=== PATIENT | female | born 1980 | race Caucasian/White ===

== ENCOUNTER 2022-03-09 18:11 | Emergency (ER) | payer SELFPAY ==
[~2022-03-09] VITALS: Ht 165.1 cm; Wt 60.0 kg
[2022-03-09] VITALS (8 sets, daily range): BP systolic 109–159; BP diastolic 59–102
[2022-03-09] MEDS ORDERED: LYRICA100 MG PO (18:20)
[2022-03-09] MEDS ORDERED: TRETINOIN10 MG PO (18:21)
[2022-03-09] MEDS ORDERED: BELBUCA150 MCG (18:21)
[2022-03-09] MEDS ORDERED: MAXALT10 MG PO (18:21)
[2022-03-09] MEDS ORDERED: SYNTHROID88 MCG PO (18:22)
[2022-03-09] MEDS ORDERED: METHOTREXATE S2.5 MG (18:22)
[2022-03-09] MEDS ORDERED: DULOXETINE HCL30 MG (18:22)
[2022-03-09] MEDS ORDERED: TRAZODONE50 MG PO (18:23)
[2022-03-09] MEDS ORDERED: ALPRAZOLAM0.5 MG PO (18:23)
[2022-03-09] MEDS ORDERED: AMPHETAMINE (18:24)
[2022-03-09] MEDS ORDERED: DEX (18:24)
[2022-03-09] MEDS ORDERED: FOLIC ACID1 MG PO (18:25)
[2022-03-09 19:06] LABS: BASO% 0.2 % (0-3); EOS% 1.1 % (0-8); HEMATOCRIT 42.9 % (37.0-47.0); IMMATURE GRANULOCYTES 0.5 % (0.0-5.0); LYMPH% 21.4 % (15-41); MEAN CELL VOLUME 89.9 fL CALC (80.0-100.0); MEAN CORPUSCULAR HGB 31.4 pG CALC (26.0-32.0); MONO% 8.6 % (2-13); NEUT# 8.38 thou/uL (2.00-7.15); NEUT% 68.2 % (42-76); RED BLOOD COUNT 4.77 mill/uL (4.20-5.60); RED CELL DISTRI WIDTH 12.4 % (11.5-15.5)
[2022-03-09 19:10] LABS: URINE BILIRUBIN - DIPSTICK NEGATIVE (NEGATIVE); URINE BLOOD DIPSTICK NEGATIVE (NEGATIVE); URINE COLOR YELLOW; URINE GLUCOSE - DIPSTICK NEGATIVE (NEGATIVE); URINE KETONE NEGATIVE (NEGATIVE); URINE LEUK ESTERASE NEGATIVE (NEGATIVE); URINE PH 5.5 (4.5-8.0); URINE PROTEIN - DIPSTICK NEGATIVE (NEG-TRACE); URINE SPECIFIC GRAVITY >=1.030; URINE UROBILINOGEN - DIPSTICK 0.2 E.U./dL (0.2)
[2022-03-09 19:16] LABS: URINE NITRITE - DIPSTICK NEGATIVE (Negative)
[2022-03-09 19:29] LABS: ALBUMIN 4.5 g/dL (3.2-5.0); ALKALINE PHOSPHATASE 70 u/l (38-126); ANION GAP 11 (6-22 (CALC)); BILIRUBIN, TOTAL 0.3 mg/dL (0.0-1.4); BUN 12 mg/dL (7-17); BUN/CREATININE RATIO 18 (12-20 (CALC)); CARBON DIOXIDE 25 mmol/l (22-30); CHLORIDE 106 mmol/l (95-108); CREATININE 0.7 mg/dL (0.5-1.0); GFR FOR AFR.AMER. > 60 ML/MIN (>=60 (CALC)); GFR OTHER RACES > 60 ML/MIN (>=60 (CALC)); LIPASE 84 u/l (23-300); POTASSIUM 3.8 mmol/l (3.5-5.1); SGOT/AST 48 u/l (14-36); SODIUM 138 mmol/l (137-146); TOTAL PROTEIN 7.4 g/dL (6.3-8.2)
[2022-03-09] MEDS ORDERED: ONDANSETRON4 MG PO (20:42)
[2022-03-09] MEDS ORDERED: PREVACID30 M3 PO (20:42)
== END 2022-03-09 21:10 | disposition home or self-care (01) | DRG 392 ==
LOC: ED 18:11
PROVIDERS: Family Medicine
DX: K29.70 Gastritis, unspecified, without bleeding (principal)
CPT/HCPCS: Q9967; S0164

== ENCOUNTER 2022-05-18 09:51 | Day surgery (SDC) | payer OTHER ==
[~2022-05-18] VITALS: Ht 162.6 cm; Wt 54.4 kg
[~2022-05-18 09:51] MED LIST: ALPRAZOLAM ER0.5 MG PO; ALPRAZOLAM0.5 MG PO; AMPHETAMINE PO; BAC OP; BELBUCA150 MCG; BUPROPION HCL150 MG PO; CIPROFLOXACN500 MG PO; CLINDAMYCIN EX; DEX PO; DULOXETINE HCL30 MG PO; FOLIC ACID1 M1; FOLIC ACID1 MG PO; HYDROXYCHLOR200 M1 PO; LYRICA100 MG PO; MAXALT10 MG PO; METHOTREXATE S2.5 MG PO; NEO OP; ONDANSETRON4 MG PO; OXYBUTYNIN CHLOR5 M2 PO; PREVACID30 M3 PO; SYNTHROID88 MCG PO; TAMSULOSIN HCL0.4 MG PO; TRAZODONE50 MG PO; TRETINOIN10 MG PO; [UNRECOGNIZED DRUG - OTHER] OP
[2022-05-18 11:41] VITALS: BP 114/78
== END 2022-05-18 11:45 | disposition home or self-care (01) | DRG 392 ==
LOC: ENDO 09:51 → ORM 12:30
PROVIDERS: ATTEND Surgery
PROC: 0DB98ZX Excision of Duodenum, Via Natural or Artificial Opening Endoscopic, Diagnostic (ICD-10-PCS; principal; 2022-05-18)
PROC: 0DB78ZX Excision of Stomach, Pylorus, Via Natural or Artificial Opening Endoscopic, Diagnostic (ICD-10-PCS; 2022-05-18)
PROC: 0DB58ZX Excision of Esophagus, Via Natural or Artificial Opening Endoscopic, Diagnostic (ICD-10-PCS; 2022-05-18)
PROC: 0DB48ZX Excision of Esophagogastric Junction, Via Natural or Artificial Opening Endoscopic, Diagnostic (ICD-10-PCS; 2022-05-18)
DX: K29.50 Unspecified chronic gastritis without bleeding (principal); M35.1 Other overlap syndromes; K20.90 Esophagitis, unspecified without bleeding; K29.80 Duodenitis without bleeding; K44.9 Diaphragmatic hernia without obstruction or gangrene; Z87.11 Personal history of peptic ulcer disease; E06.3 Autoimmune thyroiditis

== ENCOUNTER 2023-02-22 13:03 | Emergency (ER) | payer OTHER ==
[~2023-02-22] VITALS: Ht 162.6 cm; Wt 52.4 kg
[2023-02-22] VITALS (8 sets, daily range): BP systolic 80–157; BP diastolic 54–101
[~2023-02-22 13:03] MED LIST changes: +OMEPRAZOLE20 MG PO; +PROTONIX40 M2 PO
[2023-02-22 13:56] LABS: BASO% 0.1 % (0-3); EOS% 1.1 % (0-8); HEMATOCRIT 41.1 % (37.0-47.0); HEMOGLOBIN 13.4 g/dl (12.0-16.0); IMMATURE GRANULOCYTES 0.1 % (0.0-5.0); LYMPH% 19.9 % (15-41); MEAN CELL VOLUME 92.6 fL CALC (80.0-100.0); MEAN CORPUSCULAR HGB 30.2 pG CALC (26.0-32.0); MEAN CORPUSCULAR HGB CONC 32.6 g/dL CAL (32.0-36.0); MONO% 9.9 % (2-13); NEUT# 6.25 thou/uL (2.00-7.15); NEUT% 68.9 % (42-76); RED BLOOD COUNT 4.44 mill/uL (4.20-5.60); RED CELL DISTRI WIDTH 12.8 % (11.5-15.5)
[2023-02-22 14:14] LABS: INTERNATIONAL NORMALIZED RATIO 1.1 RATIO (0.7-1.3); PROTHROMBIN TIME 10.2 SECONDS (9.0-12.5)
[2023-02-22 14:18] LABS: ALBUMIN 4.3 g/dL (3.2-5.0); ALKALINE PHOSPHATASE 54 u/l (38-126); ANION GAP 15 (6-22 (CALC)); BUN 14 mg/dL (7-17); BUN/CREATININE RATIO 17 (12-20 (CALC)); CALCULATED LDLCHOLESTEROL 70 mg/dL (62-129 (CALC)); CARBON DIOXIDE 22 mmol/l (22-30); CHLORIDE 105 mmol/l (95-108); CHOLESTEROL HDL RATIO 2.9 (<4.4 (CALC)); CREATININE 0.8 mg/dL (0.5-1.0); GFR FOR AFR.AMER. > 60 ML/MIN (>=60 (CALC)); GFR OTHER RACES > 60 ML/MIN (>=60 (CALC)); HDL CHOLESTEROL 51 mg/dL (39.0-59.0); POTASSIUM 3.9 mmol/l (3.5-5.1); SGOT/AST 36 u/l (14-36); SODIUM 138 mmol/l (137-146); TOTAL CHOLESTEROL 148 mg/dl (0-199); TOTAL PROTEIN 6.9 g/dL (6.3-8.2); TOTAL TRIGLYCERIDES 135 mg/dl (0-149); VLDL CHOLESTROL 27 mg/dl (1-41 (CALC))
[2023-02-22 14:36] LABS: BILIRUBIN, TOTAL 0.5 mg/dL (0.02-1.3)
[2023-02-22 15:19] LABS: URINE BILIRUBIN - DIPSTICK Negative (NEGATIVE); URINE BLOOD DIPSTICK Trace-lysed (NEGATIVE); URINE GLUCOSE - DIPSTICK Negative (NEGATIVE); URINE KETONE Negative (NEGATIVE); URINE LEUK ESTERASE Negative (NEGATIVE); URINE NITRITE - DIPSTICK Negative (Negative); URINE PH 7.5 (4.5-8.0); URINE PROTEIN - DIPSTICK Negative (NEG-TRACE); URINE SPECIFIC GRAVITY 1.015; URINE UROBILINOGEN - DIPSTICK 0.2 E.U./dL (0.2)
[2023-02-22 15:20] LABS: URINE COLOR Yellow
== END 2023-02-22 16:45 | disposition left against medical advice (07) | DRG 312 ==
LOC: ED 13:03
PROVIDERS: Nurse Practitioner
PROC: 0HQ1XZZ Repair Face Skin, External Approach (ICD-10-PCS; principal; 2023-02-22)
DX: R55 Syncope and collapse (principal); R20.2 Paresthesia of skin; R20.0 Anesthesia of skin; S01.112A Laceration without foreign body of left eyelid and periocular area, initial encounter; M35.1 Other overlap syndromes; W18.11XA Fall from or off toilet without subsequent striking against object, initial encounter; Y92.002 Bathroom of unspecified non-institutional (private) residence as the place of occurrence of the external cause; Z72.0 Tobacco use; Z53.29 Procedure and treatment not carried out because of patient's decision for other reasons
CPT/HCPCS: Q9967